=== PATIENT | female | born 1965 | race Caucasian/White ===

== ENCOUNTER → 2018-01-04 | Outpatient (REF) | payer OTHER | LOC: M LAB REF 16:38 | DX: R35.0 Frequency of micturition (principal) ==

== ENCOUNTER → 2020-02-04 | Outpatient (CLI) | payer OTHER ==
[~2020-02-04] MED LIST: ATOR1TAB19 PO; VITATAB74 PO; vitamin d PO
== END ==
LOC: M LABSMTC 08:57
PROVIDERS: ATTEND Anesthesiology
DX: Z01.812 Encounter for preprocedural laboratory examination (principal); Z20.828 Contact with and (suspected) exposure to other viral communicable diseases

== ENCOUNTER 2020-02-08 07:23 | Day surgery (SDC) | payer BC ==
[~2020-02-08] VITALS: Ht 170.2 cm; Wt 87.1 kg
[~2020-02-08 07:23] MED LIST changes: +NS 1,000 ML IV ONE
[2020-02-08] MEDS ORDERED: propofoL 200 MG/20 ML VIAL As Ordered ONE (07:46)
[2020-02-08] MEDS ORDERED: LIDOCAINE 2% 100MG/5ML SDV (FOR ANES.) As Ordered ONE (07:46)
--- NOTE | 2020-02-08 09:30 | ROOR ---
Patient Name: Josy Swartz Procedure Date: 02/08/2020 9:13 AM Date of : 1965 Age: 54 Room: [facility] Gender: Female Note Status: Finalized Procedure: Colonoscopy Indications: Screening patient at increased risk: Family history of 1st-degree relative with colorectal cancer at age 60 years (or older) Providers: Michael Ewing Jr, MD Referring MD: Onel Robison MD Requesting Provider: Medicines: Propofol per Anesthesia Complications: No immediate complications. Procedure: Pre-Anesthesia Assessment: - Prior to the procedure, a History and Physical was performed, and patient medications and allergies were reviewed. The patient is competent. The risks and benefits of the procedure and the sedation options and risks were discussed with the patient. All questions were answered and informed consent was obtained. Patient identification and proposed procedure were verified by the physician and the nurse in the pre-procedure area and in the procedure room. Mental Status Examination: alert and oriented. Airway Examination: normal oropharyngeal airway and neck mobility. Respiratory Examination: clear to auscultation. CV Examination: normal. ASA Grade Assessment: II - A patient with mild systemic disease. After reviewing the risks and benefits, the patient was deemed in satisfactory condition to undergo the procedure. The anesthesia plan was to use moderate sedation / analgesia (conscious sedation). Immediately prior to administration of medications, the patient was re-assessed for adequacy to receive sedatives. The heart rate, respiratory rate, oxygen saturations, blood pressure, adequacy of pulmonary ventilation, and response to care were monitored throughout the procedure. The physical status of the patient was re-assessed after the procedure. The Colonoscope was introduced through the anus and advanced to the cecum, identified by appendiceal orifice and ileocecal valve. The colonoscopy was performed without difficulty. The patient tolerated the procedure well. The quality of the bowel preparation was adequate. Findings: The rectum, recto-sigmoid colon, sigmoid colon, descending colon, transverse colon, ascending colon, cecum, appendiceal orifice and ileocecal valve appeared normal. Impression: - The rectum, recto-sigmoid colon, sigmoid colon, descending colon, transverse colon, ascending colon, cecum, appendiceal orifice and ileocecal valve are normal. - No specimens collected. Recommendation: - Discharge patient to home (ambulatory). - Repeat colonoscopy in 5 years for screening purposes. Procedure Code(s): --- Professional --- 63634, Colonoscopy, flexible; diagnostic, including collection of specimen(s) by brushing or washing, when performed (separate procedure) Diagnosis Code(s): --- Professional --- Z80.0, Family history of malignant neoplasm of digestive organs CPT copyright 2019 [employer]. All rights reserved. The codes documented in this report are preliminary and upon print shop helper review may be revised to meet current compliance requirements. Michael Ewing MD Michael Ewing Jr, MD 02/08/2020 9:30:45 AM Electronically signed by Michael Ewing Jr, MD Number of Addenda: 0 Note Initiated On: 02/08/2020 9:13 AM Estimated Blood Loss: Estimated blood loss: none.
[2020-02-08 10:10] VITALS: BP 138/75
== END 2020-02-08 10:12 | disposition home or self-care (01) ==
LOC: M OPP 07:23
PROVIDERS: ATTEND Surgery
DX: Z12.11 Encounter for screening for malignant neoplasm of colon (principal); Z80.0 Family history of malignant neoplasm of digestive organs

== ENCOUNTER 2020-02-21 17:41 | Emergency (ER) | payer BC ==
[~2020-02-21] VITALS: Ht 167.6 cm; Wt 88.1 kg
[~2020-02-21 17:41] MED LIST changes: -NS 1,000 ML IV ONE
--- OUTSIDE RECORDS SUMMARY | 2020-02-21 17:47 | CCD ---
Author Author [facility] Organization [facility] Address Unknown Phone Unavailable Care Team Providers Care Motor Equipment Commanding Officer Name Role Phone Yamilka Robison MD Unavailable Unavailable Yamilka Robison MD Unavailable Unavailable Yamilka Robison MD Unavailable Unavailable Yamilka Robison MD Unavailable Unavailable Yamilka Robison MD Unavailable Unavailable Yamilka Robison MD Unavailable Unavailable Yamilka Robison MD Unavailable Unavailable Yamilka Robison MD Unavailable Unavailable Yamilka Robison MD Unavailable Unavailable Yamilka Robison MD Unavailable Unavailable Yamilka Robison MD Unavailable Unavailable Yamilka Robison MD Unavailable Unavailable Yamilka Robison MD Unavailable Unavailable Yamilka Robison MD Unavailable Unavailable Yamilka Robison MD Unavailable Unavailable Yamilka Robison MD Unavailable Unavailable Yamilka Robison MD Unavailable Unavailable Yamilka Robison MD Unavailable Unavailable Yamilka Robison MD Unavailable Unavailable Yamilka Robison MD Unavailable Unavailable Yamilka Robison MD Unavailable Unavailable Yamilka Robison MD Unavailable Unavailable Yamilka Robison MD Unavailable Unavailable Yamilka Robison MD Unavailable Unavailable Yamilka Robison MD Unavailable Unavailable Yamilka Robison MD Unavailable Unavailable Yamilka Robison MD Unavailable Unavailable Yamilka Robison MD Unavailable Unavailable Yamilka Robison MD Unavailable Unavailable Yamilka Robison MD Unavailable Unavailable Yamilka Robison MD Unavailable Unavailable Yamilka Robison MD Unavailable Unavailable Yamilka Robison MD Unavailable Unavailable Yamilka Robison MD Unavailable Unavailable Yamilka Robison MD Unavailable Unavailable Yamilka Robison MD Unavailable Unavailable Ricki F Onel SHEA Unavailable Unavailable Ricki F Onel SHEA Unavailable Unavailable Yamilka Robison MD Unavailable Unavailable Yamilka Robison MD Unavailable Unavailable Yamilka Robison MD Unavailable Unavailable Yamilka Robison MD Unavailable Unavailable Ricki F Onel SHEA Unavailable Unavailable Ricki F Onel SHEA Unavailable Unavailable Ricki F Onel SHEA Unavailable Unavailable Ricki F Onel SHEA Unavailable Unavailable Ricki F Onel SHEA Unavailable Unavailable Ricki F Onel SHEA Unavailable Unavailable Ricki F Onel SHEA Unavailable Unavailable Ricki F Onel SHEA Unavailable Unavailable Ricki F Onel SHEA Unavailable Unavailable Ricki F Onel SHEA Unavailable Unavailable Ricki F Onel SHEA Unavailable Unavailable Ricki F Onel SHEA Unavailable Unavailable Ricki F Onel SHEA Unavailable Unavailable Ricki F Onel SHEA Unavailable Unavailable Ricki F Onel SHEA Unavailable Unavailable Ricki F Onel SHEA Unavailable Unavailable Ricki F Onel SHEA Unavailable Unavailable Ricki F Onel SHEA Unavailable Unavailable Ricki F Onel SHEA Unavailable Unavailable Yamilka Robison MD Unavailable Unavailable Yamilka Robison MD Unavailable Unavailable Yamilka Robison MD Unavailable Unavailable Yamilka Robison MD Unavailable Unavailable Yamilka Robison MD Unavailable Unavailable Yamilka Robison MD Unavailable Unavailable Yamilka Robison MD Unavailable Unavailable Yamilka Robison MD Unavailable Unavailable Yamilka Robison MD Unavailable Unavailable Yamilka Robison MD Unavailable Unavailable Yamilka Robison MD Unavailable Unavailable Yamilka Robison MD Unavailable Unavailable Anthony RAE MD Unavailable Unavailable Anthony RAE MD Unavailable Unavailable Anthony RAE MD Unavailable Unavailable Anthony RAE MD Unavailable Unavailable Anthony RAE MD Unavailable Unavailable Anthony RAE MD Unavailable Unavailable Anthony RAE MD Unavailable Unavailable Anthony RAE MD Unavailable Unavailable Anthony RAE MD Unavailable Unavailable Anthony RAE MD Unavailable Unavailable Anthony RAE MD Unavailable Unavailable Anthony RAE MD Unavailable Unavailable Anthony RAE MD Unavailable Unavailable Anthony RAE MD Unavailable Unavailable Anthony RAE MD Unavailable Unavailable Anthony RAE MD Unavailable Unavailable Anthony RAE MD Unavailable Unavailable Anthony RAE MD Unavailable Unavailable Anthony RAE MD Unavailable Unavailable Anthony RAE MD Unavailable Unavailable RAE, L JAYLON MD Unavailable Unavailable RAE, L JAYLON MD Unavailable Unavailable RAE, L JAYLON MD Unavailable Unavailable RAE, L JAYLON MD Unavailable Unavailable RAE, L JAYLON MD Unavailable Unavailable RAE, L JAYLON MD Unavailable Unavailable RAE, L JAYLON MD Unavailable Unavailable RAE, L JAYLON MD Unavailable Unavailable RAE, L JAYLON MD Unavailable Unavailable RAE, L JAYLON MD Unavailable Unavailable RAE, L JAYLON MD Unavailable Unavailable RAE, L JAYLON MD Unavailable Unavailable RAE, L JAYLON MD Unavailable Unavailable RAE, L JAYLON MD Unavailable Unavailable RAE, L JAYLON MD Unavailable Unavailable RAE, L JAYLON MD Unavailable Unavailable RAE, L JAYLON MD Unavailable Unavailable RAE, L JAYLON MD Unavailable Unavailable RAE, L JAYLON MD Unavailable Unavailable RAE, L JAYLON MD Unavailable Unavailable RAE, L JAYLON MD Unavailable Unavailable RAE, L JAYLON MD Unavailable Unavailable Re-disclosure Warning The records that you are about to access may contain information from federally-assisted alcohol or drug abuse programs. If such information is present, then the following federally mandated warning applies: This information has been disclosed to you from records protected by federal confidentiality rules (42 CFR part 2). The federal rules prohibit you from making any further disclosure of this information unless further disclosure is expressly permitted by the written consent of the person to whom it pertains or as otherwise permitted by 42 CFR part 2. A general authorization for the release of medical or other information is NOT sufficient for this purpose. The Federal rules restrict any use of the information to criminally investigate or prosecute any alcohol or drug abuse patient.The records that you are about to access may contain highly sensitive health information, the redisclosure of which is protected by Article 27-F of the [facility] Public Health law. If you continue you may have access to information: Regarding HIV / AIDS; Provided by facilities licensed or operated by the [facility] Office of Mental Health; or Provided by the [facility] Office for People With Developmental Disabilities. If such information is present, then the following [facility] mandated warning applies: This information has been disclosed to you from confidential records which are protected by state law. State law prohibits you from making any further disclosure of this information without the specific written consent of the person to whom it pertains, or as otherwise permitted by law. Any unauthorized further disclosure in violation of state law may result in a fine or chcf sentence or both. A general authorization for the release of medical or other information is NOT sufficient authorization for further disc losure. Family History Family Member Name Family Member Gender Family Member Status Date o f Status Description Data Source(s) Unknown Unknown Problem [facility] (Manuel W ankit DIRECTOR OF RADIOLOGY) Unknown Female Problem [facility] ([facility]) Unknown Female Problem [facility] ([facility] ) Encounters Encounter Providers Location Date Indications Data Source(s ) Outpatient Attender: Onel Mcguire 09/01 09:00:00 AM EDT [facility] ([facility] ) Outpatient Attender: JAYLON Manuel Woman director of exhibits 09:45:00 AM EDT [facility] ([facility] Woman DIRECT[facility] OF RADIOLOGY) Immunizations Vaccine Date Status Description Data Source(s) INFLUENZA VIRUS VACCINE QUADRIVAL [id number](6 MOS AND UP)/PF 11/16/2019 12:00:00 AM EDT completed [facility] Tdap 01/24/2019 08:46:00 AM EST completed M [facility] ([facility]) Medications Medication Brand Name Start Date Product Form Dose Route Admi nistrative Instructions Pharmacy Instructions Status Indications Reaction Description Data Source(s) No Active Medications 12/30/2019 12:00:00 AM EST completed [facility] ([facility] ) doxycycline hyclate 100 MG Oral Tablet Doxycycline Hyclate 0 06/24/2019 12:00:00 AM EDT ORAL completed [facility] ([facility]) Immunization Adminstration,1 Vaccine/Toxoid 01/24/2019 12:00 :00 AM EST completed [facility] ([facility]) Medication administered onsite Insurance Providers Payer name Policy type / Coverage type Policy ID Covered democrat ID Covered democrat's relationship to nguyen Policy Nguyen Plan Information [employer] [place] 302/307 [id number] SP [id number] [employer] [place] 302/307 [id number] SP [id number] [facility] [address] [id number] [address] [id number] [employer] [place] 306/806 [id number] SP [id number] [facility] Commercial [id number] [employer] [id number] [employer] [id number] [employer] [id number] [employer] [address] Self [employer] [place] [id number] [employer] Samantha (pr) Commercial Self [facility] [employer] Sam[facility] (pr) Commercial Self [facility] [employer] [address] [id number] SP [id number] Surgeries/Procedures Procedure Description Date Indications Data Source(s) Mammogram 07/07/2019 12:00:00 AM EDT M [facility] (Manuel Woman DIRECTOR OF RADIOLOGY) Results ID Date Data Source [id number] 02/04/2020 09:30:00 AM EST [facility] Name Value Range Interpretation Code Description Data Georgie rce(s) Supporting Document(s) SARS coronavirus 2 RNA [facility] This lab was ordered by [facility] and reported by [facility]. ID Date Data Source [id number] 09/02/2019 08:21:00 AM EDT [facility] ([facility]) Name Value Range Interpretation Code Description Data Georgie rce(s) Supporting Document(s) Calcidiol [Mass/volume] in Serum or Plasma 64.7 24.0-80.0 [facility] ([facility]) This test was performed using [employer] I P Vitamin D immunoassay kit. Values obtained with different assay methods should not be used interchangeably. ID Date Data Source [id number] 09/02/2019 08:21:00 AM EDT [facility] ([facility]) Name Value Range Interpretation Code Description Data Georgie rce(s) Supporting Document(s) Cholesterol [Mass/volume] in Serum or Plasma 201 mg/dL 131-200 [facility] ([facility]) Cholesterol in HDL [Mass/volume] in Serum or Plasma 53 mg/dL 35-60 [facility] ([facility]) Cholesterol in LDL [Mass/volume] in Serum or Plasma by calcu lation 126 CALC 50-159 [facility] ([facility]) Triglyceride [Mass/volume] in Serum or Plasma 109 mg/dL 30-150 [facility] ([facility]) ID Date Data Source [id number] 09/02/2019 08:21:00 AM EDT [facility] ([facility]) Name Value Range Interpretation Code Description Data Georgie rce(s) Supporting Document(s) Glucose [Mass/volume] in Serum or Plasma 102 mg/dL 74-99 [facility] ([facility]) 100-125 mg/dL PRE-DIABETES/FASTING >126 mg/dL DIABETES/FASTING Urea nitrogen [Mass/volume] in Serum or Plasma 13 mg/dL 7-18 [facility] ([facility]) Sodium [Moles/volume] in Serum or Plasma 141 meq/L 136-145 [facility] ([facility]) Creatinine 1.0 mg/dL 0.6-1.3 [facility] Potassium [Moles/volume] in Serum or Plasma 4.5 meq/L 3.5-5.1 [facility] ([facility]) Chloride [Moles/volume] in Serum or Plasma 106 meq/L 98-107 [facility] ([facility]) Alkaline phosphatase isoenzyme [Units/volume] in Serum or Pl asma 65 mg/dL 46-116 [facility] Total Bilirubin 0.6 mg/dL 0.2-1.0 [facility] ([facility]) Carbon dioxide, total [Moles/volume] in Serum or Plasma 27 meq/L 21 -32 [facility] ([facility]) Calcium [Mass/volume] in Serum or Plasma 9.1 mg/dL 8.5-10.1 [facility] ([facility]) Albumin [Mass/volume] in Serum or Plasma 3.9 g/dL 3.4-5.0 [facility] ([facility]) Aspartate aminotransferase [Enzymatic activity/volume] in Serum or Plasma 14 U/L 15-37 [facility] ([facility] ) Alanine aminotransferase [Enzymatic activity/volume] in Seru m or Plasma 28 U/L 12-78 [facility] ([facility]) Proteinase 3 Ab [Units/volume] in Serum 7.1 g/dL 6.4-8.2 [facility] ([facility]) A/G Ratio 1.22 CALC 1.00-1.90 [facility]) Glomerular filtration rate/1.73 sq M pre dicted among non-blacks [Volume Rate/Area] in Serum or Plasma by Creatinine-based formula (MDRD) 58 mL/min [facility] ([facility]) Glomerular filtration rate/1.73 sq M pre dicted among blacks [Volume Rate/Area] in Serum or Plasma by Creatinine-based formula (MDRD) Laboratory test result [facility] ([facility]) <content>CHRONIC KIDNEY DISEASE STAGING PER NKF</content>
<content></content>
<content>STAGE I & II GFR >= 60 NORMAL TO MILDLY DECREASED</content>
<content>STAGE III GFR 30-59 MODERATELY DECREASED</content>
<content>STAGE IV GFR 15-29 SEVERELY DECREASED</content>
<content>STAGE V GFR <15 VERY LITTLE GFR LEFT</content>
<content>ESRD GFR <15 ON EMPLOYMENT LEGAL ASSISTANT</content>
<content></content> ID Date Data Source [id number] 08/26/2019 12:00:00 PM EDT [facility] (Kaleb Radha DIRECTOR OF RADIOLOGY) Name Value Range Interpretation Code Description Data Georgie rce(s) Supporting Document(s) TP Reflex HPV ASCUS Laboratory test result [facility] (Kaleb Radha DIRECTOR OF RADIOLOGY) SPECIMEN PART------ A. Cervical, Endocervical, ThinPrep Pap (Display And Banner Designer) CYTOLOGY HX-------- Date of Last Menstrual Period: 05-30-19 Other Information:Previous Normal Pap: 6-19 FINAL DIAGNOSIS---- INTERPRETATION: Negative for Intraepithelial Lesion or Malignancy. SPECIMEN ADEQUACY:Satisfactory for evaluation. Endocervical/transformation zone component is absent/insufficient. TP Reflex HPV ASCUS Laboratory test result [facility] (Manuel Woman DIRECTOR OF RADIOLOGY) Procedure Social History Code Duration Value Status Description Data Source(s ) Smoking 08/26/2019 12:00:00 AM EDT Patient has never smoked co mpleted Patient has never smoked [facility] ([place] Woman DIRECTOR OF RADIOLOGY) Vital Signs ID Date Data Source UNK Name Value Range Interpretation Code Description Data Source(s) Body surface area Derived from formula 1.99 m2 1.99 m2 [facility] ([facility]) Body weight 89.359 kg 89.359 kg [facility] ([facility]) [place] body weight 130 [lb_av] 130 [lb_av] [facility]) Body mass index (BMI) [Ratio] 31.8 kg/m2 31.8 k g/m2 [facility] ([facility]) Body weight 197.00 [lb_av] 197.00 [lb_av] [facility] ([facility]) Body height 66 [in_i] 66 [in_i] [facility] ([facility]) 5'6" Diastolic blood pressure 78 mm[Hg] 78 mm[Hg] [facility] ([facility]) Systolic blood pressure 138 mm[Hg] 138 mm[Hg] [facility] ([facility]) Body mass index (BMI) [Ratio] 31.3 kg/m2 31.3 k g/m2 [facility] ([facility]) Oxygen saturation in Arterial blood by Pulse oximetry 97 % 97 % [facility] ([facility]) Body weight 188.00 [lb_av] 188.00 [lb_av] [facility] ([facility]) Body height 65 [in_i] 65 [in_i] [facility] ([facility]) 5'5" Heart rate 86 /min 86 /min [facility] ([facility]) Diastolic blood pressure 80 mm[Hg] 80 mm[Hg] [facility] ([facility]) Systolic blood pressure 110 mm[Hg] 110 mm[Hg] [facility] ([facility]) Body surface area 1.90 m2 1.90 m2 [facility] (Manuel Woman DIRECTOR OF RADIOLOGY) Body mass index (BMI) [Ratio] 31.5 kg/m2 31.5 k g/m2 [facility] (Manuel Woman DIRECTOR OF RADIOLOGY) Body weight 185.00 [lb_av] 185.00 [lb_av] [facility] (Kaleb Woman DIRECTOR OF RADIOLOGY) Body height 64.25 [in_i] 64.25 [in_i] [facility] (Rodolfo isgraciela Woman DIRECTOR OF RADIOLOGY) 5'4.25" Diastolic blood pressure 86 mm[Hg] 86 mm[Hg] [facility] (Kaleb Woman DIRECTOR OF RADIOLOGY) Systolic blood pressure 148 mm[Hg] 148 mm[Hg] M [facility] (Kaleb Woman DIRECTOR OF RADIOLOGY) Body mass index (BMI) [Ratio] 29.1 kg/m2 29.1 k g/m2 [facility] ([facility]) Body weight 175.00 [lb_av] 175.00 [lb_av] MARIA ANTONAI Frank ([facility]) Body height 65 [in_i] 65 [in_i] [facility] ([facility]) 5'5" Diastolic blood pressure 80 mm[Hg] 80 mm[Hg] [facility] ([facility]) Systolic blood pressure 132 mm[Hg] 132 mm[Hg] Sue ALEJO ([facility])
[2020-02-21] MEDS ORDERED: PSEU30TA85 PO (18:08)
[2020-02-21 18:25] LABS: BASO % 0.5 % (0.0-1.0); EOS # 0.1 10^3/uL (0.0-0.5); HEMATOCRIT 42.4 % (36.0-47.0); HEMOGLOBIN 14.3 g/dl (12.0-15.5); LYMPH # 1.9 10^3/uL (1.5-5.0); MEAN CORPUSCULAR HEMOGLOBIN 31.7 pg (27.0-33.0); MEAN CORPUSCULAR HGB CONC 33.7 g/dl (32.0-36.5); MONO # 0.7 10^3/uL (0.0-0.8); MONO % 8.5 % (0.0-5.0); NEUTROPHILS # 5.6 10^3/uL (1.5-8.5); NEUTROPHILS % 66.6 % (36.0-66.0); PLATELET COUNT, AUTOMATED 321 10^3/uL (150-450); RED BLOOD COUNT 4.51 10^6/uL (4.00-5.40); WHITE BLOOD COUNT 8.3 10^3/uL (4.0-10.0)
--- NOTE | 2020-02-21 18:47 | REP ---
INDICATION: CHEST PAIN. COMPARISON: None. TECHNIQUE: Portable FINDINGS: The technique utilized in obtaining the radiograph has magnified the cardiac silhouette and accentuated the interstitial markings. The superior mediastinal structures are midline. The cardiac silhouette is unremarkable in size, shape, and position. The diaphragmatic surfaces of the lungs are regular, and the costophrenic angles are clear. The pulmonary [place] oca are clear. The imaged osseous structures are intact. IMPRESSION: There is no acute cardiopulmonary disease. <Electronically signed by Prabhu Rudd > 02/21/20 [id number]
[2020-02-21 19:06] LABS: BLOOD UREA NITROGEN 9 MG/DL (7-18); CARBON DIOXIDE LEVEL 25 MEQ/L (21-32); CHLORIDE LEVEL 106 MEQ/L (98-107); CREATININE FOR GFR 1.27 MG/DL (0.55-1.30); GLOMERULAR FILTRATION RATE 46.5 (>51); GLUCOSE, FASTING 110 MG/DL (70-100); POTASSIUM SERUM 3.7 MEQ/L (3.5-5.1); SODIUM LEVEL 138 MEQ/L (136-145)
[2020-02-21 19:07] LABS: ALBUMIN 4.2 GM/DL (3.2-5.2); ALT/SGPT 19 U/L (12-78); BILIRUBIN,DIRECT 0.2 MG/DL (0.0-0.2); BILIRUBIN,TOTAL 0.4 MG/DL (0.2-1.0); CALCIUM LEVEL 9.3 MG/DL (8.5-10.1); CK-MB VALUE MASS < 1.0 NG/ML (<3.6); CPK CREATINE PHOSPHOKINASE 88 U/L (26-192); FREE T4 0.97 NG/DL (0.76-1.46); LIPASE 291 U/L (73-393); MAGNESIUM LEVEL 2.3 MG/DL (1.8-2.4); MB/CK RELATIVE INDEX 1.14 (< OR =4); NT-PRO BNP 104 PG/ML (<125); TOTAL PROTEIN 7.6 GM/DL (6.4-8.2); TROPONIN I < 0.02 NG/ML (< 0.10)
[2020-02-21] MEDS ORDERED: LABETALOL 100MG/20ML VIAL IV STA (19:37)
--- OUTSIDE RECORDS SUMMARY | 2020-02-21 19:38 | CCD ---
Author Author [facility] Organization [facility] Address Unknown Phone Unavailable Care Team Providers Care Molding Sander Name Role Phone Yamilka Robison MD Unavailable [...] Unavailable Unavailable Anthony RAE MD Unavailable Unavailable Antohny RAE MD Unavailable Unavailable Anthony RAE MD [...] is protected by Article 27-F of the [facility] Public Health law. If you continue you may have access to information: Regarding HIV / AIDS; Provided by facilities licensed or operated by the [facility] Office of Mental Health; or Provided by the [facility] Office for People With Developmental Disabilities. If such information is present, then the following [facility] mandated warning applies: This information has been [...] law may result in a fine or nursing home sentence or both. A general authorization for the release of medical or other information is NOT sufficient authorization for further disc losure. 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 09:45:00 AM EDT [facility] ([facility] IRIDOLOG[facility]) Immunizations Vaccine Date Status Description Data Source(s) INFLUENZA VIRUS VACCINE QUADRIVAL [id number](6 MOS AND UP)/PF 11/16/2019 12:00:00 AM EDT completed [facility] Tdap 01/24/2019 08:46:00 AM EST completed M [facility] ([facility]) Medications Medication Brand Name Start Date Product Form Dose Route Admi nistrative Instructions Pharmacy Instructions Status Indications Reaction Description Data Source(s) No Active Medications 12/30/2019 12:00:00 AM EST completed [facility] ([facility] ) doxycycline hyclate 100 MG Oral Tablet Doxycycline Hyclate 0 06/24/2019 12:00:00 AM EDT ORAL completed [facility] ([facility]) Immunization Adminstration,1 Vaccine/Toxoid 01/24/2019 12:00 :00 AM EST completed [facility] ([facility]) Medication administered onsite Insurance Providers Payer name Policy type / Coverage type Policy ID Covered republican ID Covered republican's relationship to nguyen Policy Nguyen Plan Information [employer] [place] 302/307 [id number] SP [id number] [employer] [place] 302/307 [id number] SP [id number] [facility] DIST [id number] SP [id number] [employer] [place] 306/806 [id number] SP [id number] [facility] Commercial [id number] [employer] [id number] [employer] [id number] [employer] [id number] [employer] [address] Self [facility] [employer] [place] [id number] [facility] Samantha (pr) Commercial Self [facility] Samantha (pr) Commercial Self [facility] [employer] DIST [id number] SP [id number] Surgeries/Procedures Procedure Description Date Indications Data Source(s) Mammogram 07/07/2019 12:00:00 AM EDT M [facility] (Manuel Woman IRIDOLOGIST) Results ID Date Data Source [id number] 02/04/2020 09:30:00 AM EST [facility] Name Value Range Interpretation Code Description Data Georgie rce(s) Supporting Document(s) SARS coronavirus 2 RNA [facility] This lab was ordered by [facility] and reported by [facility]. ID Date Data Source [id number] 09/02/2019 08:21:00 AM EDT [facility] ([facility]) Name Value Range Interpretation Code Description Data Georgie rce(s) Supporting Document(s) Calcidiol [Mass/volume] in Serum or Plasma 64.7 24.0-80.0 [facility] ([facility]) This test was performed using FastPack I P Vitamin D immunoassay kit. Values obtained with different assay methods should not be used interchangeably. ID Date Data Source [id number] 09/02/2019 08:21:00 AM EDT [facility] ([facility]) Name Value Range Interpretation Code Description Data Georgie rce(s) Supporting Document(s) Cholesterol [Mass/volume] in Serum or Plasma 201 mg/dL 131-200 [facility] ([facility]) Cholesterol in HDL [Mass/volume] in Serum or Plasma 53 mg/dL 35-60 [facility] ([facility]) Cholesterol in LDL [Mass/volume] in Serum or Plasma by calcu lation 126 CALC 50-159 [facility] ([facility]) Triglyceride [Mass/volume] in Serum or Plasma 109 mg/dL 30-150 [facility] ([facility]) ID Date Data Source [id number] 09/02/2019 08:21:00 AM EDT [facility] ([facility]) Name Value Range Interpretation Code Description Data Georgie rce(s) Supporting Document(s) Glucose [Mass/volume] in Serum or Plasma 102 mg/dL 74-99 [facility] ([facility]) 100-125 mg/dL PRE-DIABETES/FASTING >126 mg/dL DIABETES/FASTING Urea nitrogen [Mass/volume] in Serum or Plasma 13 mg/dL 7-18 [facility] ([facility]) Sodium [Moles/volume] in Serum or Plasma 141 meq/L 136-145 [facility] ([facility]) Creatinine 1.0 mg/dL 0.6-1.3 [facility] Potassium [Moles/volume] in Serum or Plasma 4.5 meq/L 3.5-5.1 [facility] ([facility]) Chloride [Moles/volume] in Serum or Plasma 106 meq/L 98-107 [facility] ([facility]) Alkaline phosphatase isoenzyme [Units/volume] in Serum or Pl asma 65 mg/dL 46-116 [facility] Total Bilirubin 0.6 mg/dL 0.2-1.0 [facility] ([facility]) Carbon dioxide, total [Moles/volume] in Serum or Plasma 27 meq/L 21 -32 [facility] ([facility]) Calcium [Mass/volume] in Serum or Plasma 9.1 mg/dL 8.5-10.1 [facility] ([facility]) Albumin [Mass/volume] in Serum or Plasma 3.9 g/dL 3.4-5.0 [facility] ([facility]) Aspartate aminotransferase [Enzymatic activity/volume] in Serum or Plasma 14 U/L 15-37 [facility] ([facility] ) Alanine aminotransferase [Enzymatic activity/volume] in Seru m or Plasma 28 U/L 12-78 [facility] ([facility]) Proteinase 3 Ab [Units/volume] in Serum 7.1 g/dL 6.4-8.2 [facility] ([facility]) A/G Ratio 1.22 CALC 1.00-1.90 [facility]) Glomerular filtration rate/1.73 sq M pre dicted among non-blacks [Volume Rate/Area] in Serum or Plasma by Creatinine-based formula (MDRD) 58 mL/min [facility] ([facility]) Glomerular filtration rate/1.73 sq M pre dicted among blacks [Volume Rate/Area] in Serum or Plasma by Creatinine-based formula (MDRD) Laboratory test result [facility] ([facility]) <content>CHRONIC KIDNEY DISEASE STAGING PER NKF</content>
<content></content>
<content>STAGE I & II GFR >= 60 NORMAL TO MILDLY DECREASED</content>
<content>STAGE III GFR 30-59 MODERATELY DECREASED</content>
<content>STAGE IV GFR 15-29 SEVERELY DECREASED</content>
<content>STAGE V GFR <15 VERY LITTLE GFR LEFT</content>
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
<content></content> ID Date Data Source [id number] 08/26/2019 12:00:00 PM EDT [facility]Kaleb Radha IRIDOLOG[facility]) Name Value Range Interpretation Code Description Data Georgie rce(s) Supporting Document(s) TP Reflex HPV ASCUS Laboratory test result [facility]Kaleb Radha IRIDOLOG[facility]) SPECIMEN PART------ A. 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 SPECIMEN ADEQUACY:Satisfactory for evaluation. Endocervical/transformation zone component is absent/insufficient. TP Reflex HPV ASCUS Laboratory test result [facility] (Manuel Woman IRIDOLOGIST) Procedure Social History Code Duration Value Status Description Data Source(s ) Smoking 08/26/2019 12:00:00 AM EDT Patient has never smoked co mpleted Patient has never smoked [facility] (Lind Woman IRIDOLOGIST) Vital Signs ID Date Data Source UNK Name Value Range Interpretation Code Description Data Source(s) Body surface area Derived from formula 1.99 m2 1.99 m2 [facility] ([facility]) Body weight 89.359 kg 89.359 kg [facility] ([facility]) [employer] [facility] body weight 130 [lb_av] 130 [lb_av] [facility] ([facility] Body mass index (BMI) [Ratio] 31.8 kg/m2 31.8 k g/m2 [facility] ([facility]) Body weight 197.00 [lb_av] 197.00 [lb_av] [facility] ([facility]) Body height 66 [in_i] 66 [in_i] [facility] ([facility]) 5'6" Diastolic blood pressure 78 mm[Hg] 78 mm[Hg] [facility] ([facility]) Systolic blood pressure 138 mm[Hg] 138 mm[Hg] [facility] ([facility]) Body mass index (BMI) [Ratio] 31.3 kg/m2 31.3 k g/m2 [facility] ([facility]) Oxygen saturation in Arterial blood by Pulse oximetry 97 % 97 % [facility] ([facility]) Body weight 188.00 [lb_av] 188.00 [lb_av] [facility] ([facility]) Body height 65 [in_i] 65 [in_i] [facility] ([facility]) 5'5" Heart rate 86 /min 86 /min [facility] ([facility]) Diastolic blood pressure 80 mm[Hg] 80 mm[Hg] [facility] ([facility]) Systolic blood pressure 110 mm[Hg] 110 mm[Hg] M [facility] ([facility]) Body surface area 1.90 m2 1.90 m2 [facility] (Manuel Woman IRIDOLOGIST) Body mass index (BMI) [Ratio] 31.5 kg/m2 31.5 k g/m2 [facility]Manuel Woman IRIDOLOG[facility]) Body weight 185.00 [lb_av] 185.00 [lb_av] [facility] (Kaleb Woman IRIDOLOGIST) Body height 64.25 [in_i] 64.25 [in_i] [facility] (Rodolfo isgraciela Woman IRIDOLOGIST) 5'4.25" Diastolic blood pressure 86 mm[Hg] 86 mm[Hg] [facility] (Kaleb Woman IRIDOLOGIST) Systolic blood pressure 148 mm[Hg] 148 mm[Hg] M SAP[facility] (Kaleb Woman IRIDOLOGIST) Body mass index (BMI) [Ratio] 29.1 kg/m2 29.1 k g/m2 [facility] ([facility]) Body weight 175.00 [lb_av] 175.00 [lb_av] MARIA ANTONIA Frank ([facility]) Body height 65 [in_i] 65 [in_i] [facility]N ([facility]) 5'5" Diastolic blood pressure 80 mm[Hg] 80 mm[Hg] JACK[facility]N ([facility]) Systolic blood pressure 132 mm[Hg] 132 mm[Hg] Sue ALEJO ([facility])
[2020-02-21 19:53] VITALS: BP 185/102
[2020-02-21] MEDS ORDERED: ISOVUE-370 76% 100ML VIAL As Ordered ONE (19:57)
--- NOTE | 2020-02-21 20:36 | REPVR ---
PROCEDURE INFORMATION: Exam: CT Angiography Chest With Contrast Exam date and time: 02/21/2020 8:05 PM Age: 54 years old Clinical indication: Palpitations, tachycardia, and recent surgery. TECHNIQUE: Imaging protocol: Computed tomographic angiography of the chest with intravenous contrast. 3D rendering (Not supervised by radiologist): MIP and/or 3D reconstructed images were created by the technologist. Radiation optimization: All CT scans at this facility use at least one of these dose optimization techniques: automated exposure control; mA and/or kV adjustment per patient size (includes targeted exams where dose is matched to clinical indication); or iterative reconstruction. Contrast material: ISOVUE 370; Contrast volume: 75 ml; Contrast route: INTRAVENOUS (IV); COMPARISON: CR PORTABLE CHEST X-RAY 02/21/2020 6:27 PM FINDINGS: Pulmonary arteries: No pulmonary embolism. Aorta: The thoracic aorta is intact and patent. There is no thoracic aortic aneurysm, pseudoaneurysm, penetrating atherosclerotic ulcer, intramural hematoma, or dissection. Great vessels off aortic arch: The brachiocephalic artery, imaged proximal portions of the common carotid arteries, imaged proximal portions of the vertebral arteries, and subclavian arteries are intact. No stenosis or occlusion of these vessels is noted. Tracheobronchial tree: Intact and patent. Lungs: The lungs are clear. There is no lung consolidation, pulmonary infarct, or mass. No emphysematous changes or interstitial lung disease is noted. Pleural space: Normal. No pneumothorax or pleural effusion. Heart: No cardiomegaly or pericardial effusion. The ratio of the diameter of the right ventricle to the diameter of the left ventricle measures less than 1, which is within normal limits and there is no CT evidence for a right ventricular strain. There is a trace amount of fluid in the pericardial sac. Mediastinal space: There is a moderate size sliding hiatal hernia. No mediastinal mass, fluid collection, or pneumomediastinum. Lymph nodes: No enlarged lymph nodes. Adrenals: There is a 2 cm left adrenal nodule that measures 15 Hounsfield units. The right adrenal gland is unremarkable. Bones/joints: There is no fracture or dislocation. No suspicious osteolytic or osteoblastic lesion. Soft tissues: Unremarkable. No soft tissue fluid collection. IMPRESSION: 1. No acute findings in the chest. No pulmonary embolism. 2. No thoracic aortic aneurysm, pseudoaneurysm, intramural hematoma, penetrating atherosclerotic ulcer, or dissection. 3. Moderate size sliding hiatal hernia. 4. 2 cm indeterminate left adrenal nodule. Consider further evaluation with an adrenal protocol CT abdomen without and with intravenous contrast using 70-second and 15-minute scan delays after the administration of the intravenous contrast in 12 months. (Ivory Reynolds, ACR White Paper, 2017) Electronically signed by: Olu Welch On 02/21/2020 20:37:03 PM
[2020-02-21 21:30] VITALS: BP 165/95
--- NOTE | 2020-02-22 10:17 | ECGEPIP ---
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
--- NOTE | 2020-02-22 14:41 | ED PDOC ---
Post-Departure Follow-Up dr hargrove faxed cta of chest for fu Jordana Feliciano MD Feb 22, 2020 14:41
== END 2020-02-21 21:45 | disposition home or self-care (01) ==
LOC: M ED 17:41
DX: R00.2 Palpitations (principal); R93.5 Abnormal findings on diagnostic imaging of other abdominal regions, including retroperitoneum; R00.0 Tachycardia, unspecified; K44.9 Diaphragmatic hernia without obstruction or gangrene; E78.5 Hyperlipidemia, unspecified; Z79.899 Other long term (current) drug therapy
CPT/HCPCS: 71045; 71275; 80048; 80076; 82550; 82553; 83690; 83735; 83880; 84439; 84443; 84484; 85025; 93005; 93041; 94760; 96374; 99285; Q9967

== ENCOUNTER → 2020-03-13 | Outpatient (CLI) | payer BC ==
[~2020-03-13] MED LIST changes: +ISOVUE-370 76% 100ML VIAL As Ordered ONE; +PSEU30TA85 PO
--- NOTE | 2020-03-13 16:41 | REP ---
INDICATION: ADRENAL LT NODULE ABN IMAGING CT CHEST. COMPARISON: None TECHNIQUE: Axial precontrast, contrast-enhanced and 15 minutes delayed images of the abdomen using 100 cc Isovue 370 intravenous contrast material. Coronal and sagittal reformations obtained. This CT examination was performed using the following dose reduction techniques: Automated exposure control, adjustment of mA and/or kv according to the patient's size, and the use of iterative reconstruction technique. FINDINGS: 2.5 cm left adrenal mass exhibits low density on precontrast images along with enhancement and delayed washout characteristics consistent with benign adenoma. The liver, spleen, pancreas, gallbladder, right adrenal gland and bilateral kidneys are normal. Visualized portions of the enteric system are unremarkable. Incidental moderate hiatal hernia at the gastroesophageal junction noted. No ascites. Abdominal aorta without aneurysm or dissection. No ascites. No free air. No obvious significant adenopathy. Lung bases are clear. Surrounding musculoskeletal structures are intact. IMPRESSION: 1. 2.5 cm left adrenal lesion compatible with benign adenoma. <Electronically signed by Gregorio Jauregui > 03/13/20 [id number]
== END ==
LOC: M RAD 10:12
PROVIDERS: ATTEND Family Medicine
DX: E27.9 Disorder of adrenal gland, unspecified (principal)
CPT/HCPCS: 74170; Q9967

== ENCOUNTER → 2021-11-18 | Outpatient (REF) | payer BC ==
[~2021-11-18] MED LIST changes: -ISOVUE-370 76% 100ML VIAL As Ordered ONE; -PSEU30TA85 PO; +PSEU30TA86 PO
== END ==
LOC: M SFHCWAGY 15:23
PROVIDERS: ATTEND Advanced Practice Midwife
DX: Z12.4 Encounter for screening for malignant neoplasm of cervix (principal)
CPT/HCPCS: 87624; G0123

== ENCOUNTER → 2023-03-16 | Outpatient (REF) | payer BC | LOC: M SFHCWAGY 17:28 | PROVIDERS: ATTEND Advanced Practice Midwife | DX: Z12.4 Encounter for screening for malignant neoplasm of cervix (principal) | CPT/HCPCS: 87624; G0123 ==

== ENCOUNTER 2023-05-17 12:05 | Emergency (ER) | payer BC ==
[~2023-05-17] VITALS: Ht 167.6 cm; Wt 88.3 kg
[~2023-05-17 12:05] MED LIST changes: -PSEU30TA86 PO; +PSEU30TA87 PO
[2023-05-17] MEDS ORDERED: ACET-683 PO (12:18)
[2023-05-17] MEDS ORDERED: LOSA100T46 PO (12:18)
[2023-05-17 14:24] LABS: BASO % 0.3 % (0.0-1.0); HEMOGLOBIN 12.2 g/dl (12.0-15.5); LYMPH # 0.6 10^3/uL (1.5-5.0); LYMPH % 8.3 % (24.0-44.0); MEAN CORPUSCULAR HEMOGLOBIN 31.6 pg (27.0-33.0); MEAN CORPUSCULAR HGB CONC 33.9 g/dl (32.0-36.5); MEAN CORPUSCULAR VOLUME 93.3 fl (80.0-96.0); MONO # 0.2 10^3/uL (0.0-0.8); MONO % 2.1 % (2.0-8.0); NEUTROPHILS # 6.8 10^3/uL (1.5-8.5); NEUTROPHILS % 88.9 % (36.0-66.0); PLATELET COUNT, AUTOMATED 335 10^3/uL (150-450); RED BLOOD COUNT 3.86 10^6/uL (4.00-5.40); WHITE BLOOD COUNT 7.7 10^3/uL (4.0-10.0)
[2023-05-17 14:36] LABS: D-DIMER QUANT 0.42 ug/mL (<0.5)
[2023-05-17 14:54] LABS: CK-MB VALUE MASS < 1.0 NG/ML (<3.6); LIPASE 56 U/L (12-53); RSV AMPLIFICATION NEGATIVE (NEGATIVE)
[2023-05-17 14:56] LABS: BLOOD UREA NITROGEN 8 MG/DL (9-23); CALCIUM LEVEL 9.4 MG/DL (8.5-10.1); CARBON DIOXIDE LEVEL 24 MMOL/L (20-31); CHLORIDE LEVEL 109 MMOL/L (98-107); GLOMERULAR FILTRATION RATE > 60.0 (>51); GLUCOSE, FASTING 120 MG/DL (60-100); POTASSIUM SERUM 4.1 MMOL/L (3.5-5.1); SODIUM LEVEL 143 MMOL/L (136-145)
[2023-05-17 14:57] LABS: FREE T4 1.07 NG/DL (0.89-1.76); THYROID STIMULATING HORMONE 0.941 uIU/ML (0.55-4.78)
[2023-05-17 15:00] LABS: CPK CREATINE PHOSPHOKINASE 106 U/L (34-145); MB/CK RELATIVE INDEX 0.94 (< OR =4)
[2023-05-17 15:05] LABS: INR 0.96; PARTIAL THROMBOPLASTIN TIME 24.9 SECONDS (24.8-34.2); PROTHROMBIN TIME 12.5 SECONDS (12.5-14.5)
[2023-05-17] MEDS ORDERED: ISOVUE-370 76% 100ML VIAL As Ordered ONE (15:14)
[2023-05-17 16:21] LABS: CK-MB VALUE MASS < 1.0 NG/ML (<3.6)
[2023-05-17 16:23] LABS: CPK CREATINE PHOSPHOKINASE 99 U/L (34-145); MB/CK RELATIVE INDEX 1.01 (< OR =4)
[2023-05-17 17:11] VITALS: BP 210/110
[2023-05-17] MEDS: METOPROLOL 5 MG/5 ML VIAL IV STA (17:11)
[2023-05-17 18:04] VITALS: BP 161/89; TEMP 98.5; O2SAT 98
== END 2023-05-17 18:06 | disposition home or self-care (01) ==
LOC: M ED 13:30
DX: M79.602 Pain in left arm (principal); R00.0 Tachycardia, unspecified; I10 Essential (primary) hypertension; Z79.811 Long term (current) use of aromatase inhibitors; Z79.02 Long term (current) use of antithrombotics/antiplatelets; Z79.1 Long term (current) use of non-steroidal anti-inflammatories (NSAID)
CPT/HCPCS: 71045; 71275; 80048; 82550; 82553; 83690; 84439; 84443; 84484; 85025; 85379; 85610; 85730; 87631; 87880; 93005; 93971; 96374; 99284; Q9967

== ENCOUNTER 2025-01-26 10:14 | Day surgery (SDC) | payer BC ==
[~2025-01-26] VITALS: Ht 165.1 cm; Wt 79.9 kg
[~2025-01-26 10:14] MED LIST changes: +ACET-683 PO; +GLYCOPYRROLATE INJ 0.2 MG/ML 2 ML VIAL As Ordered ONE; +LETR2.5T2 PO; +LIDOCAINE 2% 100 MG/5 ML SDV (FOR ANES.) As Ordered ONE; +LOSA100T46 PO; +VITA100093 PO
[2025-01-26 12:34] VITALS: TEMP 98.2
[2025-01-26 12:56] VITALS: BP 140/83; O2SAT 97
== END 2025-01-26 12:58 | disposition home or self-care (01) ==
LOC: M OPP 10:14
PROVIDERS: ATTEND Surgery
DX: Z12.11 Encounter for screening for malignant neoplasm of colon (principal); Z80.0 Family history of malignant neoplasm of digestive organs; Z79.899 Other long term (current) drug therapy
CPT/HCPCS: 45378; J1596